=== PATIENT | male | born 1995 | race Caucasian/White ===

== ENCOUNTER 2023-03-26 21:34 | Emergency (ER) | payer SELFPAY ==
[2023-03-26 21:42] VITALS: BP 165/98; PULSE 120; RESP 16; TEMP 36.9; O2SAT 97; BMI 26.4
[2023-03-26 22:31] LABS: Glucose Point of Care 288 mg/dL (70-110)
--- NOTE | 2023-03-26 23:55 | W.ED.EXTPRO ---
HPI - Extremity Problem General: Chief complaint: Extremity Problem,Nontraumatic Stated complaint: Hand Infection Time Seen by Provider: 03/26/23 23:21 History of Present Illness: 27-year-old male visiting from [place]. He has painful irritated skin lesions on his hands, and 2 on his face that have been there for some time. He was placed on antibiotics 10 days ago in [place], clindamycin, and the antibiotics seem to help to some degree, but he has a couple of new lesions today, and they are more painful. He denies significant fever, until today where he felt warm. He has type 1 diabetes, and his sugars have been higher. On questioning if he is traveled anywhere, and patient relates that he was in [place] a couple of weeks ago, and these lesions seems to have popped up the day after he got back. Associated symptoms: Reports fever(s) and rash; Deny chest pain Review of Systems Const: Reports: fever(s) and chills Eyes: Denies: change in vision ENMT: Denies: throat pain Card: Denies: chest pain or palpitations Resp: Denies: dyspnea, productive cough or non-productive cough GI: Reports: nausea; Denies: abdominal pain or vomiting Skin/Breast: Reports: rash and erythema Physical Exam Const: GENERAL APPEARANCE: cooperative and comfortable; not ill appearing HENMT: COMMON NORMALS: normocephalic, atraumatic and Normal external nose present HEAD & SCALP: normocephalic, atraumatic and other (2 small forehead ulcerations. ) NOSE: Normal external nose present and Normal nares present Eye: COMMON NORMALS: Equal, round and reactive pupils present and EOMs intact bilaterally PUPIL: Yes Equal, round and reactive pupils present Chest: CHEST: Yes Symmetrical chest wall rise Resp: COMMON NORMALS: normal respiratory effort EFFORT & INSPECTION: Yes symmetric chest movement Cardio: COMMON NORMALS: regular rate and regular rhythm RATE: regular rate RHYTHM: regular rhythm Neuro: MAXINE COMA SCALE: document GCS findings Maxine coma scale eye opening: Spontaneous Maxine coma scale verbal response: Orientated [place] coma scale motor response: Obey commands [place]ien coma scale total score: 15 Skin: NARRATIVE SKIN EXAM: Skin examination reveals multiple areas of skin ulceration, particularly on the dorsum of the hands and fingers. There are small ulcerations with an erythematous base. Some dried skin in the center appear in there are two on the patient's face as well. They're in various stages of healing/age. No drainage. Course Vital Signs: Vital signs: Vital Signs Temperature 100.9 F H 03/27/23 02:43 Pulse Rate 108 H 03/27/23 02:43 Respiratory Rate 17 03/27/23 02:43 Blood Pressure 129/67 03/27/23 02:43 Pulse Oximetry 99 03/27/23 02:43 Oxygen Delivery Me thod Room Air 03/26/23 21:42 MDM - Extremity (Nontraumatic) Medical Decision Making Skin lesions indicative of probable marine borne infection such as Mycobacterium marinum, or Erysipelothrix. I am unaware of coverage statistics with clindamycin, but should be covered well with doxycycline. Would also cover strep and MRSA as well. He will be placed on 14 days of doxycycline for this. He is encouraged to follow-up with dermatology on his return to [place] which is in 2 days, as if they do not improve he may need a biopsy. He knows to return for any worsening symptoms despite treatment. Medically, he appears stable here. 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 You may use hydrogen peroxide and water as well. Antibiotics as directed. On your return home to [place], contact your doctor for follow-up this week. If not improving, lesions may need to be biopsied. Return for fever despite 2-3 doses of antibiotics, worsening pain despite treatment, other concerning symptoms. Coding Level of Care Code ED Industrial Design Engineer for Yumi Chavarria
[2023-03-27 00:20] VITALS: RESP 15
[2023-03-27] MEDS: oxyCODONE-APAP 5-325 mg Tablet 1 TAB PO (00:20)
[2023-03-27] MEDS: doxycycline 100 mg Tablet PO (00:20)
[2023-03-27 02:43] VITALS: BP 129/67; PULSE 108; RESP 17; TEMP 38.3; O2SAT 99
== END 2023-03-27 00:22 | disposition home or self-care (01) ==
PROVIDERS: Emergency Provider Emergency Medicine
DX: A31.1 Cutaneous mycobacterial infection (principal)
CPT/HCPCS: 36416; 82962; 99283